=== PATIENT | female | born 1975 | race American Indian/Alaskan Native ===

== ENCOUNTER 2019-04-25 09:20 | Outpatient (CLI) | payer OTHER ==
--- NOTE | 2019-04-25 10:46 | Mammography Report ---
DIGITAL SCREENING MAMMOGRAM WITH CAD, 04/25/2019 INDICATION: Routine screening mammography. TECHNIQUE: Digital bilateral 2D mammography was obtained in the craniocaudal and mediolateral obliq ue projections. This examination was interpreted with the benefit of Computer-Aided Detection analysi s. COMPARISON: This is the patient's first mammogram. FINDINGS: Breast Density: The breasts are heterogeneously dense, which may obscure small masses. There is no evidence of dominant mass, suspicious calcifications or architectural distortion in eithe r breast. However, there is benign pattern of diffuse nodularity bilaterally most likely representing multiple small cysts. I would recommend bilateral complete ultrasound exams to confirm bilateral fib rocystic change. IMPRESSION: Multiple bilateral small nodules, most likely fibrocystic change. Recommend bilateral com plete breast ultrasound exams to confirm fibrocystic change. BI-RADS Category 0: Incomplete. Needs additional imaging evaluation and/or prior mammograms for re rison. A "normal" or negative report should not discourage follow up or biopsy of a clinically significant f inding. A written summary of these findings will be mailed to the patient. The patient will be entered into a mammography reporting system which will generate a reminder letter for the patient's next appointmen t at the appropriate interval. The [employer] recommends yearly mammograms starting at age 40 and continuing as l guillermina as a woman is in good health. Breast MRI is recommended for women with an approximate 20-25% or greater lifetime risk of breast cancer, including women with a strong family history of breast or ova olga cancer or who have been treated for Hodgkin's disease. Signer Name: Renetta Ansari MD Signed: 04/25/2019 10:41 AM Workstation Name: [id number]
== END 2019-04-25 09:21 | disposition home or self-care (01) ==
LOC: SPVWC 09:20
PROVIDERS: ATTEND Obstetrics & Gynecology
DX: Z12.31 Encounter for screening mammogram for malignant neoplasm of breast (principal)
CPT/HCPCS: 77067

== ENCOUNTER 2019-05-09 10:22 | Outpatient (CLI) | payer OTHER ==
--- NOTE | 2019-05-09 16:35 | Ultrasound Report ---
COMPLETE BILATERAL BREAST ULTRASOUND HISTORY: Fibrocystic change COMPARISON: 04/25/2019 mammogram FINDINGS: Complete sonographic evaluation of the right breast including imaging of the four quadrant s and subareolar areas reveals several benign cysts. The largest on the right measures 1.7 x 0.6 x 1. 4 cm at 12:30 o'clock 2 cm from the nipple and the next largest at 10:00 6 cm from the nipple measure s 8 x 6 x 6 mm. Solid mass or shadowing. Complete sonographic evaluation of the left breast including imaging of the four quadrants and subare olar areas reveals several benign cysts. The largest is at 1:30 o'clock 4 cm from the nipple measurin g 1.1 x 0.7 x 0.9 cm. No solid mass or shadowing. Additional findings: Bilateral fibrocystic change. IMPRESSION Bilateral benign fibrocystic change. If the clinical examination remains stable, the patient should continue an annual screening mammograp hic evaluation schedule. BIRADS 2: Benign Signer Name: Lester Scott MD Signed: 05/09/2019 4:30 PM Workstation Name: [id number]
== END 2019-05-09 10:23 | disposition home or self-care (01) ==
LOC: SPVWC 10:22
PROVIDERS: ATTEND Obstetrics & Gynecology
DX: N60.12 Diffuse cystic mastopathy of left breast (principal); N60.11 Diffuse cystic mastopathy of right breast